=== PATIENT | male | born 1955 | race Caucasian/White ===

== ENCOUNTER 2016-06-13 10:47 | Day surgery (SDC) | payer OTHER ==
[~2016-06-13 10:47] MED LIST: ASPIR-LOW81 MG PO; CRESTOR10 MG PO; GABAPENTIN300 MG PO; LANTUS 3 M100 UNITS1 SC; LISINOPRIL10 MG PO; METFORMIN HCL500 MG PO; TRULICITY0.75 MG/0. SC; TRULICITY1.5 MG/0.5 SC; VITAMIN D-32000 UNI2 PO; VITAMIN D2000 UNIT PO
[2016-06-13] MEDS ORDERED: METANX CAPSULE1 EACH PO (12:00)
[2016-06-13 12:26] LABS: POINT-OF-CARE METER ID UU13113696
[2016-06-18] MEDS ORDERED: METOPROLOL SUCC25 MG PO (14:17)
== END 2016-06-13 20:35 | disposition home or self-care (01) ==
LOC: CATH 10:47
PROVIDERS: Internal Medicine Cardiovascular Disease
DX: I25.119 Atherosclerotic heart disease of native coronary artery with unspecified angina pectoris (principal); I51.89 Other ill-defined heart diseases; I35.0 Nonrheumatic aortic (valve) stenosis; E11.9 Type 2 diabetes mellitus without complications; I10 Essential (primary) hypertension; E78.5 Hyperlipidemia, unspecified; Z87.891 Personal history of nicotine dependence; Z79.4 Long term (current) use of insulin; Z79.82 Long term (current) use of aspirin; Z80.42 Family history of malignant neoplasm of prostate; Z80.1 Family history of malignant neoplasm of trachea, bronchus and lung; Z80.3 Family history of malignant neoplasm of breast
CPT/HCPCS: 82948; 85347; C1769; C1887; J0153; J1644; J2250; J3010; J7050

== ENCOUNTER 2016-06-20 06:08 | Day surgery (SDC) | payer OTHER ==
[~2016-06-20] VITALS: Ht 182.9 cm; Wt 99.0 kg
[~2016-06-20 06:08] MED LIST changes: +METANX CAPSULE1 EACH PO; +METOPROLOL SUCC25 MG PO
[2016-06-20 06:58] LABS: POINT-OF-CARE METER ID UU14174212
[2016-06-20 07:00] VITALS: BP 111/64
[2016-06-20 11:14] LABS: POINT-OF-CARE METER ID UU13113675
[2016-06-20 11:32] VITALS: BP 124/82
[2016-06-20 11:52] VITALS: BP 123/79
== END 2016-06-20 11:59 | disposition home or self-care (01) ==
LOC: SDC 06:08
PROVIDERS: Ophthalmology
DX: E11.3532 Type 2 diabetes mellitus with proliferative diabetic retinopathy with traction retinal detachment not involving the macula, left eye (principal); H35.372 Puckering of macula, left eye; H43.12 Vitreous hemorrhage, left eye; I10 Essential (primary) hypertension; E78.5 Hyperlipidemia, unspecified; I25.119 Atherosclerotic heart disease of native coronary artery with unspecified angina pectoris; Z95.1 Presence of aortocoronary bypass graft; Z79.82 Long term (current) use of aspirin; Z79.4 Long term (current) use of insulin
CPT/HCPCS: 82948; J0690; J0713; J2250; J2405; J2795; J3010; J3300

== ENCOUNTER 2017-01-15 10:12 | Day surgery (SDC) | payer OTHER ==
[~2017-01-15] VITALS: Ht 182.9 cm; Wt 102.1 kg
[~2017-01-15 10:12] MED LIST changes: +COUMADIN5 MG PO; +COUMADIN7.5 MG PO; +ZESTRIL5 MG PO
[2017-01-15 10:47] VITALS: BP 130/78
[2017-01-15 10:53] LABS: HEMATOCRIT 44.8 % (38.0-50.0); MCH 25.7 PG (29.0-34.0); MCHC 33.3 G/DL (30.0-36.0); MCV 77.4 FL (86-99); MEAN PLAT.VOLUME 10.8 uM^3 (9.0-12.4); PLATELET COUNT 188 K/uL (156-360); RBC DIS.WIDTH-CV 17.3 % (11.8-14.6); RBC DIS.WIDTH-SD 46.2 % (39-53); RED BLOOD COUNT 5.79 M/uL (4.00-5.50); WHITE BLOOD COUNT 5.8 K/uL (4.1-10.2)
[2017-01-15 11:10] LABS: ANION GAP 6 MEQ/L (2-14); CHLORIDE 104 MEQ/L (99-109); POTASSIUM 4.3 MEQ/L (3.7-5.4); SAMPLE HEMOLYSIS CHECK 1; SAMPLE ICTERIC CHECK 0; SAMPLE LIPEMIA CHECK 0; SODIUM 140 MEQ/L (136-147); TOTAL BILIRUBIN 0.8 MG/DL (0.0-1.0)
[2017-01-15 11:16] LABS: ALKALINE PHOSPHATASE 58 IU/L (3-129); GFR ESTIMATE (CALCULATED) > 59 mL/min/; GLUCOSE 101 mg/dL (70-99); UREA NITROGEN (BUN) 15 mg/dL (9-23)
[2017-01-15 14:33] LABS: POINT-OF-CARE METER ID UU13113675; POINT-OF-CARE USER ID 515036437
[2017-01-15 14:35] VITALS: BP 150/73
[2017-01-15 15:25] VITALS: BP 137/67
== END 2017-01-15 15:25 | disposition home or self-care (01) ==
LOC: SDC 10:12
PROVIDERS: Ophthalmology
DX: H26.102 Unspecified traumatic cataract, left eye (principal); H43.392 Other vitreous opacities, left eye; H35.372 Puckering of macula, left eye; I10 Essential (primary) hypertension; E11.9 Type 2 diabetes mellitus without complications; Z79.01 Long term (current) use of anticoagulants; Z79.84 Long term (current) use of oral hypoglycemic drugs; Z79.4 Long term (current) use of insulin; Z87.891 Personal history of nicotine dependence; Z95.1 Presence of aortocoronary bypass graft
CPT/HCPCS: 80053; 82948; 85027; J0690; J1100; J2405; J2795; J3300